=== PATIENT | male | born 1985 | race Asian ===

== ENCOUNTER 2022-11-02 07:30 | Emergency (ER) | payer OTHER ==
[~2022-11-02] VITALS: Ht 177.8 cm; Wt 81.6 kg
[2022-11-02 07:33] VITALS: TEMP 98.6
[2022-11-02 08:10] VITALS: BP 133/78
== END 2022-11-02 08:14 | disposition home or self-care (01) ==
LOC: ED 07:30
DX: L03.211 Cellulitis of face (principal)
CPT/HCPCS: 96372; 99283; J1885